=== PATIENT | female | born 1985 | race African-American/Black ===

== ENCOUNTER 2019-09-22 14:49 | Emergency (ER) | payer MEDICAID, OTHER ==
[~2019-09-22] VITALS: Ht 170.2 cm; Wt 93.0 kg
[2019-09-22 16:02] LABS: Albumin 3.5 g/dL (3.4-5.0); BUN/Creatinine Ratio 15.6; Calcium 9.3 mg/dL (8.5-10.1)
[2019-09-22 16:04] LABS: Bilirubin, Total 0.8 mg/dL (0.2-1.0); Total Protein 7.9 g/dL (6.4-8.2)
[2019-09-22 16:26] LABS: Basophils # (auto) 0 uL; Basophils % (auto) 0.4 % (0.0-2.0); Eosinophils # (auto) 0 uL; Eosinophils % (auto) 0.2 % (0.0-7.0); Hematocrit 40.8 % (36.0-46.0); Hemoglobin 13.5 g/dL (12.2-16.2); Lymphocytes # (auto) 2.2 uL; Lymphocytes % (auto) 34.4 % (10.0-50.0); Mean Corpuscular Hemoglobin 27.4 pg (28.0-32.0); Mean Corpuscular Hgb Conc. 33.1 g/dL (32.0-36.0); Mean Corpuscular Volume 82.7 fL (80.0-100.0); Monocytes # (auto) 0.4 uL; Monocytes % (auto) 6.5 % (0.0-12.0); Neutrophils # (auto) 3.8 uL; Neutrophils % (auto) 58.5 % (37.0-80.0); Nucleated Red Blood Cells % 0.1 %; Platelet Count (auto) 220 10^3/uL (140-450); Red Blood Cells 4.93 10^6/uL (4.0-5.20); Red Cell Distribution Width 14.6 % (11.8-14.3); White Blood Cell 6.5 10^3/uL (4.4-10.8)
[2019-09-22 19:10] VITALS: BP 108/65
[2019-09-22] MEDS ORDERED: MIDAZOLAM DRIP 50 mg/50mL 50 ML IV SCH (20:34)
[2019-09-22] MEDS ORDERED: NOREPINEPHRINE 8 MG/250ML KIT 250 ML IV SCH (20:45)
== END 2019-09-22 21:09 | disposition home or self-care (01) ==
LOC: ER 14:49
DX: O20.8 Other hemorrhage in early pregnancy (principal); Z3A.01 Less than 8 weeks gestation of pregnancy
CPT/HCPCS: 36415; 76801; 80053; 84702; 85025